=== PATIENT | male | born 2000 | race African-American/Black ===

== ENCOUNTER 2021-10-08 01:38 | Emergency (ER) | payer MEDICAID ==
[~2021-10-08] VITALS: Ht 188 cm; Wt 100.0 kg
[2021-10-08 01:40] VITALS: BP 142/88
== END 2021-10-08 05:22 | disposition left against medical advice (07) ==
LOC: ER 01:38
DX: Z53.21 Procedure and treatment not carried out due to patient leaving prior to being seen by health care provider (principal); R10.9 Unspecified abdominal pain; D57.1 Sickle-cell disease without crisis
CPT/HCPCS: 99283